=== PATIENT | female | born 1985 | race Caucasian/White ===

== ENCOUNTER 2016-12-01 20:58 | Emergency (ER) | payer MEDICAID ==
[~2016-12-01] VITALS: Ht 157.5 cm; Wt 85.0 kg
[2016-12-02] MEDS ORDERED: METOCLOPRAMIDE HCL 5 MG/ML 2 ML VIAL IVP ONE (00:45)
[2016-12-02] MEDS ORDERED: DiphenhydrAMINE HCL 50 MG/ML VIAL IVP ONE (00:45)
[2016-12-02] MEDS ORDERED: KETOROLAC TROMETHAMINE 30 MG/ML VIAL IVP ONE (00:45)
[2016-12-02 01:52] VITALS: BP 105/58
== END 2016-12-02 02:15 | disposition home or self-care (01) ==
LOC: EMS 21:06
DX: R51 Headache (principal)
CPT/HCPCS: 84703; 96374; 96375; 99284; J1200; J1885; J2765